=== PATIENT | female | born 1955 | race Caucasian/White ===

== ENCOUNTER 2016-11-17 09:23 | Day surgery (SDC) | payer MEDICARE ==
[~2016-11-17] VITALS: Ht 157.5 cm; Wt 57.6 kg
[~2016-11-17 09:23] MED LIST: ALPR2TAB3 PO; DENO60P SC; GABA300C3 PO; LEVO100T4 PO; LIDOCAINE HCL 1% 20 ML VIAL ONE; OMEP20TA39 PO; OXYC5 PO; SOMA350T PO
[2016-11-17] MEDS ORDERED: MIDAZOLAM HCL 5 MG/5 ML VIAL ONE (09:38)
[2016-11-17 09:45] VITALS: BP 111/68; PULSE 69; RESP 20; TEMP 98.4; O2SAT 99
[2016-11-17] MEDS ORDERED: ALPR2TAB3 PO (09:51)
[2016-11-17] MEDS ORDERED: LEVO100T5 PO (09:51)
[2016-11-17] MEDS ORDERED: DEXT10CA6 PO (09:51)
[2016-11-17] MEDS ORDERED: GABA600T PO (09:51)
[2016-11-17] MEDS ORDERED: GABA300C5 PO (09:51)
[2016-11-17] MEDS ORDERED: SOMA350T PO (09:51)
[2016-11-17] MEDS ORDERED: OXYC1CAP PO (09:52)
[2016-11-17] MEDS ORDERED: VITA1000 PO (09:58)
[2016-11-17] MEDS ORDERED: CALC500T8 PO (09:58)
[2016-11-17] MEDS ORDERED: MULTTAB67 PO (09:58)
[2016-11-17] MEDS ORDERED: SODIUM CHLOR 0.9% 1000 ML IV SCH (10:00)
[2016-11-17 10:32] LABS: BASOPHIL % 0.7 % (0.0-2.0); EOSINOPHIL # 0.2 TH/MM3 (0-0.4); EOSINOPHIL % 3.2 % (0.0-4.0); HEMATOCRIT 37.5 % (35.0-46.0); HEMO FLAGS DIFF FINAL; LYMPH % 23.5 % (9.0-44.0); LYMPHOCYTE # 1.1 TH/MM3 (1.0-4.8); MEAN CELL VOLUME 90.7 FL (80.0-100.0); MEAN CORPUSCULAR HEMOGLOBIN 30.2 PG (27.0-34.0); MEAN CORPUSCULAR HGB CONC 33.4 % (32.0-36.0); MONO % 10.9 % (0.0-8.0); NEUT % 61.7 % (16.0-70.0); PLATELET COUNT 152 TH/MM3 (150-450); RED BLOOD COUNT 4.14 MIL/MM3 (4.00-5.30); RED CELL DISTRIBUTION WIDTH 13.2 % (11.6-17.2); WHITE BLOOD COUNT 4.8 TH/MM3 (4.0-11.0)
[2016-11-17 10:36] LABS: APTT (PATIENT) 25.3 SEC (24.3-30.1); PROTHROMBIN TIME - PATIENT 10.7 SEC (9.8-11.6)
--- NOTE | 2016-11-17 11:27 | PD.RAD ---
Post CT Procedure Prog Note Pre Procedure Diagnosis: (1) B-cell lymphoma Post Procedure Diagnosis: (1) B-cell lymphoma Procedure Date: Nov 17, 2016 Supervising Radiologist: Redd Reyes JR Anesthesia: Conscious Sedation Plan of Activity Patient to Unit: ROPU Patient Condition: Good See PACS Report for procedural detail/treatment Biopsy Imaging Guidance: CT Side: Right Biopsy Procedure: Bone Marrow Specimen: Core Biopsy, Fine Needle Aspirate Findings: Bone marrow bx and aspiration with good sampling. Jr. Eric,Redd Campbell MD Nov 17, 2016 11:27
[2016-11-17 11:40] VITALS: BP 91/65; PULSE 60; RESP 18; TEMP 97.7; O2SAT 99
[2016-11-17 11:55] VITALS: BP 94/64; PULSE 78; RESP 18; O2SAT 100
[2016-11-17 12:10] VITALS: BP 99/66; PULSE 72; RESP 18; O2SAT 100
[2016-11-17 12:52] LABS: BONE MARROW PROCESSING COMPLETE; IRON STAIN DONE; JENNER GIEMSA STAIN DONE
--- NOTE | 2016-11-17 13:40 | RADRPT ---
EXAM DATE/TIME: 11/17/2016 11:01 [facility] COMPARISON: No previous studies available for comparison. INDICATIONS : Diffuse large B cell lymphoma. SEDATION TIME: 30 minutes BIOPSY SITE: Right ilium. MEDICATION(S): 1.) 3 mg midazolam (Versed) IV 2.) 100 mcg fentanyl (Sublimaze) IV DEVICE(S): 1.) 12 gauge Bone marrow biopsy needle MEDICAL HISTORY : Lymphoma. Chronic obstructive pulmonary disease. Gastroesophageal reflux disease. Chondrosarcoma, lef t pelivs; PVD; Gout; Osteoporosis. SURGICAL HISTORY : Cholecystectomy Left hemipelvectomy. ENCOUNTER: Initial ACUITY: 1 day PAIN SCORE: 0/10 LOCATION: Bilateral pelvis A total of one core specimen(s) were obtained and sent to the laboratory for pathologic evaluation. PROCEDURE: 1. CT guided bone marrow biopsy. Prior to the procedure informed consent was obtained. Any appropriate prior imaging studies were rev iewed. Using automated exposure control and adjustment of the mA and/or kV according to patient size , radiation dose was kept as low as reasonably achievable to obtain optimal diagnostic quality images . DICOM format image data is available electronically for review and comparison. The site was prepped in a sterile fashion. Full sterile technique was used, including cap, mask, mack rile gloves and gown and a large sterile sheet. Hand hygiene and 2% chlorhexidine and/or betadine/al cohol prep was utilized per protocol for cutaneous antisepsis. The skin and subcutaneous tissues wer e infiltrated with local anesthetic solution. With CT guidance the previously identified target was localized. Biopsy was performed using the presc ribed needle as above. Following biopsy marrow aspiration was performed with repeat puncture. Adequa te hemostasis was obtained with compression at the puncture site. Follow-up CT scan reveals no hemorrhage. Conscious sedation was performed with the prescribed dosages and duration as above in the presence of an independent trained radiology nurse to assist in the monitoring of the patient. EKG and oximetry remained stable throughout the procedure. The patient tolerated the procedure well and there were no complications. The patient was sent to Radiology Outpatient Unit in stable condition. CONCLUSION: 1. Uncomplicated CT guided bone marrow aspirate. 2. Uncomplicated CT guided bone marrow biopsy. Redd Reyes Jr., MD on November 17, 2016 at 13:38 Board Certified Radiologist. This report was verified electronically.
== END 2016-11-17 15:00 | disposition home or self-care (01) ==
LOC: HRAD 09:23 → HRIP 09:24 → HRAD 15:00
PROVIDERS: ATTEND Internal Medicine
DX: C83.30 Diffuse large B-cell lymphoma, unspecified site (principal); C41.9 Malignant neoplasm of bone and articular cartilage, unspecified; M81.0 Age-related osteoporosis without current pathological fracture; J44.9 Chronic obstructive pulmonary disease, unspecified; K21.9 Gastro-esophageal reflux disease without esophagitis; I73.9 Peripheral vascular disease, unspecified; M10.9 Gout, unspecified
CPT/HCPCS: 38221; 77012; 85025; 85097; 85610; 85730; 88184; 88185; 88237; 88264; 88280; 88305; 88311; 88313; 88341; 88342; 99152; 99153; C1830; G0364; J2250; J3010

== ENCOUNTER 2016-11-24 08:46 | Day surgery (SDC) | payer MEDICARE ==
[~2016-11-24] VITALS: Ht 157.5 cm; Wt 46.4 kg
[~2016-11-24 08:46] MED LIST changes: +CALC500T8 PO; -DENO60P SC; +DEXT10CA6 PO; -GABA300C3 PO; +GABA300C5 PO; +GABA600T PO; -LEVO100T4 PO; +LEVO100T5 PO; -LIDOCAINE HCL 1% 20 ML VIAL ONE; +MULTTAB67 PO; -OMEP20TA39 PO; +OXYC1CAP PO; -OXYC5 PO; +VITA1000 PO
[2016-11-24 09:16] VITALS: BP 105/74; PULSE 72; RESP 20; TEMP 97.9; O2SAT 95
[2016-11-24] MEDS ORDERED: POVIDONE IODINE 5% (ANTISEPSIS KIT) 4 APPLICATIONS EACH NARE SCH (10:00)
[2016-11-24] MEDS ORDERED: VANCOMYCIN 1000 MG/NS 250 ML - implanted port/tunneled catheter IV SCH ×2 (10:00)
[2016-11-24] MEDS ORDERED: ceFAZolin 2 GM PREMIX 50 ML - implanted port/tunneled catheter insertion IV SCH (10:00)
[2016-11-24] MEDS ORDERED: CHLORHEXIDINE GLUCONATE 2 % 1 PACK (2 CLOTHS) TOPICAL SCH (10:00)
[2016-11-24] MEDS ORDERED: MUPIROCIN 2% OINT 1 APPLIC/GM SYR EACH NARE SCH (10:00)
[2016-11-24] MEDS ORDERED: SODIUM CHLORIDE 0.9% 1000 ML IV SCH (10:30)
[2016-11-24] MEDS ORDERED: MIDAZOLAM HCL 5 MG/5 ML VIAL ONE (11:30)
[2016-11-24 12:46] VITALS: BP 104/69; PULSE 64; RESP 16; TEMP 97.5; O2SAT 97
--- NOTE | 2016-11-24 12:47 | PD.RAD ---
Post Procedure Progress Note Pre Procedure Diagnosis: (1) B-cell lymphoma Post Procedure Diagnosis: (1) B-cell lymphoma Procedure Date: Nov 24, 2016 Supervising Radiologist: Albert Faust Proceduralist/Assist: Ben Barnes RT(R), Babak Fuchs RT(R) Anesthesia: Local, Analgesia, Conscious Sedation Plan of Activity Patient to Unit: ROPU Patient Condition: Good See PACS Report for procedural detail/treatment Central Venous Access Device Procedure 1 Right Internal Jugular Infusaport Placement single lumen Luxembourger: 8 Albert Faust MD Nov 24, 2016 12:47
[2016-11-24] MEDS ORDERED: SODIUM CHLORIDE 0.9% FLUSH 10 ML FLUSH IVF PRN (13:00)
[2016-11-24 13:01] VITALS: BP 136/81; PULSE 59; RESP 17; O2SAT 99
--- NOTE | 2016-11-24 13:24 | RADRPT ---
EXAM DATE/TIME: 11/24/2016 11:13 [facility] COMPARISON: No previous studies available for comparison. INDICATIONS : Patient presents with Lymphoma in need of port placement for treatment. MEDICAL HISTORY : Anxiety Arthritis Asthma Chondrosarcoma left pelvis COPD Gout High Cholesterol Hypothyroidism Liver problems Migraine Osteoarthritis Osteoporosis PVD Pneumonia SURGICAL HISTORY : Cholecystectomy Left adrián pelvectomy ENCOUNTER: Initial ACUITY: 4-6 months PAIN SCORE: 5/10 LOCATION: Chronic pain FLUORO TIME: 0.8 minutes IMAGE SERIES: 1 SEDATION TIME: 45 minutes ACCESS: Right internal jugular vein SEDATION: 1.) 5 mg midazolam (Versed) IV 2.) 200 mcg fentanyl (Sublimaze) IV 3.) 300units Heparin IV Prophylactic antibiotics were administered with appropriate pre-procedure timing. Vancomycin within 2 hours of procedure, Ancef (or alternative) within 1 hour of procedure. DEVICE: 1. [address] Sudanese single lumen Smart Port CT PROCEDURE : 1. Continuous pulse oximetry and EKG monitoring. 2. Intravenous conscious sedation. 3. Ultrasound guidance for venous access. 4. Fluoroscopic guided implantable central venous port placement. The patient was placed supine. The neck was prepped in sterile fashion. Full sterile technique was u sed, including cap, mask, sterile gloves and gown, and a large sterile sheet. Hand hygiene and 2% ch lorhexidine Betadine was utilized per protocol for cutaneous antisepsis with appropriate dry time for site. Sterile gel and sterile probe cover were utilized for ultrasound guidance. The skin and sub cutaneous tissues were infiltrated with local anesthetic solution. Under direct ultrasound guidance, central venous access was accomplished in the targeted vessel. The ultrasound images depicting access guidance were stored and saved to PACS for permanent record. A s ubcutaneous pocket was created using blunt dissection. The port was introduced to the pocket. The c atheter tubing was fed through a subcutaneous tunnel to the venotomy site. The catheter tubing was c ut to a suitable length and then was introduced through a valved Peel-Away sheath and positioned with catheter tubing tip at the cavo-atrial junction level. The pocket incision was closed with subcutic ular Vicryl suture. Steri-Strips were applied. The port was flushed and locked with heparin solutio n per protocol. Sterile dressing was applied to the site. The patient tolerated the procedure well. Conscious sedation was performed with the prescribed dosages and duration as above in the presence of an independent trained radiology nurse to assist in the monitoring of the patient. EKG and oximetry remained stable throughout the procedure. The patient tolerated the procedure well and there were no complications. The patient was sent to post anesthesia recovery in stable condition. CONCLUSION: Uncomplicated ultrasound and fluoroscopic guided implanted central venous port catheter placement as described in detail above. An 8 Sudanese Power port was placed. Albert Faust MD on November 24, 2016 at 13:23 Board Certified Radiologist. This report was verified electronically.
[2016-11-24 13:31] VITALS: BP 110/73; PULSE 58; RESP 19; O2SAT 99
[2016-11-24 14:01] VITALS: BP 116/74; PULSE 68; RESP 18; O2SAT 98
[2016-11-24 15:01] VITALS: BP 118/72; PULSE 72; RESP 19; O2SAT 99
== END 2016-11-24 15:20 | disposition home or self-care (01) ==
LOC: HROP 08:46 → HRIP 08:47 → HROP 15:20
PROVIDERS: ATTEND Internal Medicine
DX: Z45.2 Encounter for adjustment and management of vascular access device (principal); C85.10 Unspecified B-cell lymphoma, unspecified site; I73.9 Peripheral vascular disease, unspecified; J44.9 Chronic obstructive pulmonary disease, unspecified; E03.9 Hypothyroidism, unspecified; F41.9 Anxiety disorder, unspecified
CPT/HCPCS: 36561; 76937; 77001; 99152; 99153; C1788; J0690; J1642; J2250; J3010; J3370; J7030; J7050

== ENCOUNTER 2016-12-23 17:04 | Emergency (ER) | payer MEDICARE ==
[~2016-12-23] VITALS: Ht 157.5 cm; Wt 58.0 kg
[2016-12-23 17:09] VITALS: BP 130/73; PULSE 93; RESP 17; TEMP 98.8; O2SAT 98
--- NOTE | 2016-12-23 17:57 | PD ---
HPI Chief Complaint: Medical Clearance Time Seen by Provider: 17:55 Travel History International Travel<30 days: No Contact w/Intl Traveler<30days: No Traveled to known affect area: No History of Present Illness HPI Examined in the presence of a female nurse. 61-year-old female with history of stage by the large cell lymphoma who began chemotherapy on December 06. She had a port placed on November 24. She presents with a chief complaint of redness and soreness at the site of the port incision site. Symptoms started yesterday. She palpated the incision site and found that it was sore and this was a new finding. She denies any drainage, fevers or chills, cough or congestion, rash or recent travel. She otherwise appears well with no acute complaints. Her oncologist is Dr. Mayen and her primary care physician is Dr. Alvarado. [facility] Past Medical History Anxiety: Yes Cancer: Yes (chrondro sarcoma) Cardiovascular Problems: No Chemotherapy: Yes (12/06) COPD: Yes Diabetes: No Endocrine: No Genitourinary: Yes Hepatitis: No Hiatal Hernia: No Immune Disorder: No Musculoskeletal: Yes Neurologic: Yes Psychiatric: Yes (anxiety) Reproductive: No Respiratory: Yes (copd,asthma) Thyroid Disease: Yes Tetanus Vaccination: Unknown Influenza Vaccination: No ?: Not Tubal Ligation: Yes Past Surgical History Abdominal Surgery: Yes (gallbladder) AICD: No Cardiac Surgery: No Cholecystectomy: Yes Ear Surgery: No Endocrine Surgery: No Eye Surgery: No Genitourinary Surgery: Yes Joint Replacement: Yes (right hip replacement) Oral Surgery: No Pacemaker: No Thoracic Surgery: No Social History Alcohol Use: No Tobacco Use: No Substance Use: No Allergies-Medications (Allergen,Severity, Reaction): Coded Allergies: amoxicillin (Unverified Allergy, Unknown, 12/23/16) clavulanic acid (Unverified Allergy, Unknown, 12/23/16) codeine (Unverified Allergy, Unknown, Nausea/Vomiting, Itching, 12/23/16) duloxetine (Unverified Allergy, Unknown, 12/23/16) pregabalin (Unverified Allergy, Unknown, 12/23/16) venlafaxine (Unverified Allergy, Unknown, 12/23/16) diclofenac (Unverified Adverse Reaction, Unknown, 12/23/16) Ulcer etodolac (Unverified Adverse Reaction, Unknown, 12/23/16) Ulcer flurbiprofen (Unverified Adverse Reaction, Unknown, 12/23/16) Ulcer ibuprofen (Unverified Adverse Reaction, Unknown, 12/23/16) Ulcer indomethacin (Unverified Adverse Reaction, Unknown, 12/23/16) Ulcer ketoprofen (Unverified Adverse Reaction, Unknown, 12/23/16) Ulcer ketorolac (Unverified Adverse Reaction, Unknown, 12/23/16) Ulcer naproxen (Unverified Adverse Reaction, Unknown, 12/23/16) Ulcer oxaprozin (Unverified Adverse Reaction, Unknown, 12/23/16) Ulcer Uncoded Allergies: Clavulanate (Allergy, Severe, Nausea/Vomiting, Diarrhea, 10/06/15) Reported Meds & Prescriptions Reported Meds & Active Scripts Active Reported Multiple Vitamin 1 Tab 1 Tab PO DAILY Vitamin D-1000 (Cholecalciferol) 1,000 Unit Tab 1,000 Units PO DAILY Oxycodone (Oxycodone HCl) 5 Mg Cap 5 Mg PO Q4H PRN Alprazolam 2 Mg Tab 2 Mg PO Q8H PRN Soma (Carisoprodol) 350 Mg Tab 350 Mg PO QID PRN Levothyroxine (Levothyroxine Sodium) 100 Mcg Tab 100 Mcg PO DAILY Gabapentin 300 Mg Cap 900 Mg PO HS Gabapentin 600 Mg Tab 600 Mg PO BID Dextroamphetamine (Dextroamphetamine Sulfate) 10 Mg Cap 10 Mg PO DAILY Review of Systems Except as stated in HPI: all other systems reviewed are Neg Physical Exam Narrative GENERAL: Well-developed well-nourished female in no acute distress SKIN: Warm and dry. Examination of the port site reveals a well-healing 2 cm linear incision with no erythema, induration or warmth. It is mildly tender to palpation at the site of the incision itself. The port itself is nontender. HEAD: Atraumatic. Normocephalic. EYES: Pupils equal and round. No scleral icterus. No injection or drainage. ENT: No nasal bleeding or discharge. Mucous membranes pink and moist. NECK: Trachea midline. No JVD. CARDIOVASCULAR: Regular rate and rhythm. No murmur appreciated. RESPIRATORY: No accessory muscle use. Clear to auscultation. Breath sounds equal bilaterally. GASTROINTESTINAL: Abdomen soft, non-tender, nondistended. MUSCULOSKELETAL: No obvious deformities. No clubbing. No cyanosis. No edema. NEUROLOGICAL: Awake and alert. No obvious cranial nerve deficits. Motor grossly within normal limits. Normal speech. Data Data Last Documented VS Vital Signs Date Time Temp Pulse Resp B/P (MAP) Pulse Ox O2 Delivery O2 Flow Rate FiO2 12/23/16 17:09 98.8 93 17 130/73 (92) 98 Room Air Orders Orders Complete Blood Count With Diff (12/23/16 17:56) Basic Metabolic Panel (Bmp) (12/23/16 17:56) Blood Culture (12/23/16 17:57) Heparin Central Flush (Heparin Central F (12/23/16 18:15) ^ Other Nursing Orders (12/23/16 18:08) Ed Discharge Order (12/23/16 18:51) Labs Laboratory Tests Test 12/23/16 18:05 White Blood Count 6.7 TH/MM3 Red Blood Count 3.93 MIL/MM3 Hemoglobin 12.2 GM/DL Hematocrit 35.6 % Mean Corpuscular Volume 90.7 FL Mean Corpuscular Hemoglobin 31.1 PG Mean Corpuscular Hemoglobin Concent 34.3 % Red Cell Distribution Width 13.1 % Platelet Count 217 TH/MM3 Mean Platelet Volume 10.2 FL Neutrophils (%) (Auto) 71.5 % Lymphocytes (%) (Auto) 15.9 % Monocytes (%) (Auto) 11.1 % Eosinophils (%) (Auto) 0.5 % Basophils (%) (Auto) 1.0 % Neutrophils # (Auto) 4.8 TH/MM3 Lymphocytes # (Auto) 1.1 TH/MM3 Monocytes # (Auto) 0.7 TH/MM3 Eosinophils # (Auto) 0.0 TH/MM3 Basophils # (Auto) 0.1 TH/MM3 CBC Comment DIFF FINAL Differential Comment Blood Urea Nitrogen 22 MG/DL Creatinine 0.56 MG/DL Random Glucose 99 MG/DL Calcium Level 8.6 MG/DL Sodium Level 141 MEQ/L Potassium Level 3.6 MEQ/L Chloride Level 109 MEQ/L Carbon Dioxide Level 25.0 MEQ/L Anion Gap 7 MEQ/L Estimat Glomerular Filtration Rate 109 ML/MIN MDM Medical Decision Making Medical Screen Exam Complete: Yes Emergency Medical Condition: Yes Medical Record Reviewed: Yes Differential Diagnosis Painful port incision, wound dehiscence, scarring, infected port Narrative Course The incision itself appears normal she does not acutely erythematous or indurated or warm to palpation. We will check basic lab work and sent blood cultures from the port itself. Lab work is unremarkable. The patient is stable for discharge, blood cultures are pending. Diagnosis Primary Impression: Incisional pain Additional Instructions: Please provide a copy of the lab work to the patient upon discharge. Follow-up with your oncologist, primary care physician. Return for any emergent medical conditions. Med/Other Pt SpecificInfo: No Change to Meds Disposition: 01 DISCHARGE HOME Condition: Stable Sonido Núñez Dec 23, 2016 17:57
--- NOTE | 2016-12-23 18:04 | PD ---
Physical Exam Date Seen by Provider: Dec 23, 2016 Narrative Patient presents concerned about an infection of her port. She states that it is red and tender and that this is new since yesterday. Data Data Last Documented VS Vital Signs Date Time Temp Pulse Resp B/P (MAP) Pulse Ox O2 Delivery O2 Flow Rate FiO2 12/23/16 17:09 98.8 93 17 130/73 (92) 98 Room Air Orders Orders Complete Blood Count With Diff (12/23/16 17:56) Basic Metabolic Panel (Bmp) (12/23/16 17:56) Blood Culture (12/23/16 17:57) MDM Supervised Visit with KATHERIN: Yes Narrative Course I, Dr. Trent, have reviewed the advance practice practitioner's documentation and am in agreement, met with the patient face to face, made the diagnosis, and the medical decision making was done by me. *My assessment and Findings: The port looks normal to me. The overlying skin is not red or hot. It doesn't seem to be particularly tender. There is some very mild erythema of the incision which is superior to the port itself. Please see Sonido Núñez PA-C's note for results of laboratory and radiographic evaluation, ED course, final diagnosis and disposition Donna Trent MD Dec 23, 2016 18:04
[2016-12-23 18:30] LABS: AUTOMATED NEUTROPHIL # 4.8 TH/MM3 (1.8-7.7); BASOPHIL # 0.1 TH/MM3 (0-0.2); EOSINOPHIL % 0.5 % (0.0-4.0); HEMATOCRIT 35.6 % (35.0-46.0); HEMO FLAGS DIFF FINAL; LYMPH % 15.9 % (9.0-44.0); LYMPHOCYTE # 1.1 TH/MM3 (1.0-4.8); MEAN CELL VOLUME 90.7 FL (80.0-100.0); MEAN CORPUSCULAR HEMOGLOBIN 31.1 PG (27.0-34.0); MEAN CORPUSCULAR HGB CONC 34.3 % (32.0-36.0); MONO % 11.1 % (0.0-8.0); NEUT % 71.5 % (16.0-70.0); PLATELET COUNT 217 TH/MM3 (150-450); RED BLOOD COUNT 3.93 MIL/MM3 (4.00-5.30); RED CELL DISTRIBUTION WIDTH 13.1 % (11.6-17.2); WHITE BLOOD COUNT 6.7 TH/MM3 (4.0-11.0)
[2016-12-23 18:50] LABS: POTASSIUM 3.6 MEQ/L (3.5-5.1)
== END 2016-12-23 19:42 | disposition home or self-care (01) ==
LOC: NEPC 17:04
DX: G89.18 Other acute postprocedural pain (principal); C85.90 Non-Hodgkin lymphoma, unspecified, unspecified site; J44.9 Chronic obstructive pulmonary disease, unspecified
CPT/HCPCS: 80048; 85025; 87040; 99283; J1642

== ENCOUNTER → 2016-12-25 | Outpatient (CLI) | payer MEDICARE ==
[~2016-12-25] MED LIST changes: -CALC500T8 PO
--- NOTE | 2016-12-26 17:54 | EKG ---
Date Performed: 12/25/2016 Time Performed: 15:42:20 PTAGE: 61 years EKG: Sinus rhythm NORMAL ECG NO PREVIOUS TRACING DOCTOR: Mayur Granda Interpretating Date/Time 12/26/2016 17:53:08
== END ==
LOC: HCAV 15:22
PROVIDERS: ATTEND Internal Medicine
DX: R07.9 Chest pain, unspecified (principal); C83.30 Diffuse large B-cell lymphoma, unspecified site
CPT/HCPCS: 93005